=== PATIENT | male | born 1995 | race Caucasian/White ===

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

== ENCOUNTER → 2017-08-26 | Outpatient (REF) | payer OTHER ==
[2017-08-27 00:58] LABS: INFLUENZA A AMPLIFICATION NEGATIVE (NEGATIVE); INFLUENZA B AMPLIFICATION NEGATIVE (NEGATIVE); RSV AMPLIFICATION NEGATIVE (NEGATIVE)
== END ==
LOC: M LAB REF 22:43
DX: J11.1 Influenza due to unidentified influenza virus with other respiratory manifestations (principal)

== ENCOUNTER 2017-10-09 12:34 | Emergency (ER) | payer OTHER, MEDICAID | END 2017-10-09 13:21 | disposition home or self-care (01) | LOC: M ED 12:34 | DX: R03.0 Elevated blood-pressure reading, without diagnosis of hypertension (principal); K08.89 Other specified disorders of teeth and supporting structures; J32.9 Chronic sinusitis, unspecified; F17.200 Nicotine dependence, unspecified, uncomplicated; F90.9 Attention-deficit hyperactivity disorder, unspecified type; F84.9 Pervasive developmental disorder, unspecified; Z88.0 Allergy status to penicillin | CPT/HCPCS: 99282 ==